=== PATIENT | male | born 1955 | race Hispanic/Latino ===

== ENCOUNTER → 2018-02-06 | Outpatient (CLI) | payer OTHER ==
[~2018-02-06] MED LIST: IBUPROFEN400 MG PO; LEXAPRO10 MG PO; LOSARTAN POTASS25 MG PO; LOVASTATIN40 MG PO; METFORMIN HCL500 MG PO; PANTOPRAZOLE SO20 MG PO
--- NOTE | 2018-02-06 14:39 | Diagnostic Imaging Report ---
EXAMINATION: Scrotal ultrasound CLINICAL INDICATION: Testicular pain. COMPARISON: None. TECHNIQUE: Grayscale and color Doppler evaluation of the scrotum was performed in transverse and longitudinal planes. FINDINGS: The right testicle measures 4 x 2 x 2.6 cm. There are no masses or calcifications.. The right epididymis measures 0.8 x 0.6 x 1.1 cm. No nodules or masses.. There is no evidence of right varicocele. There is normal flow to the right testicle, without evidence of torsion. The left testicle measures 3.5 x 1.9 x 2 cm. There are no masses or calcifications.. The left epididymis measures 0.8 x 0.5 x 0.7 cm. No nodules or masses.. There is no evidence of left varicocele. There is normal flow to the left testicle without evidence of torsion. Trace bilateral hydroceles. The scrotum has a normal appearance, without focal lesions. Penile implant is partially visualized. Impression: Unremarkable sonographic appearance of the testes. Trace bilateral hydroceles. Signed by: Dr. Alec Parra M.D. on 02/06/2018 2:35 PM
== END ==
LOC: US 12:45
PROVIDERS: ATTEND Urology
DX: N50.819 Testicular pain, unspecified (principal); G89.29 Other chronic pain
CPT/HCPCS: 76870; 93976

== ENCOUNTER → 2020-01-29 | Outpatient (CLI) | payer MEDICARE, OTHER ==
[~2020-01-29] MED LIST changes: +IOTHALAMATE MEGLUMINE 17.20% 250 ML BTL ONE
--- NOTE | 2020-01-29 16:14 | Diagnostic Imaging Report ---
EXAM: Fluoroscopically guided retrograde urethrogram INDICATION: Concern for ureteral stricture COMPARISON: None available. FINDINGS: Due to technical difficulties all of the images including the cine clips were not transferred to PACS. 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 Penis: After sterile prepping cleaning the urethral orifice, a balloon catheter was placed within the distal urethra and gently inflated with air. Contrast was then injected through the catheter outlining penile and bulbar urethra. 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 IMPRESSION: 1. No evidence of ureteral stricture within the bulbar or penile portions. 2. Unable to opacify the prosthetic urethra or bladder. Signed by: Jhon Maurer MD on 01/29/2020 4:10 PM
== END ==
LOC: DX 10:33
PROVIDERS: ATTEND Urology
DX: N35.919 Unspecified urethral stricture, male, unspecified site (principal)
CPT/HCPCS: 74450; Q9958